=== PATIENT | male | born 1950 | race Caucasian/White ===

== ENCOUNTER 2020-01-18 11:02 | Outpatient (CLI) | payer MEDICARE, BC, SELFPAY | END 2020-01-18 14:41 | disposition home or self-care (01) | LOC: PHYS 11:03 | PROVIDERS: PCP Student in an Organized Health Care Education/Training Program; Referring Provider Orthopaedic Surgery; Visit Provider Orthopaedic Surgery | DX: G56.03 Carpal tunnel syndrome, bilateral upper limbs (principal) | CPT/HCPCS: 95886; 95911 ==